=== PATIENT | male | born 1955 | race Caucasian/White ===

== ENCOUNTER 2023-06-22 17:56 | Inpatient (IN) | payer OTHER ==
[~2023-06-22] VITALS: Ht 185.4 cm; Wt 59.1 kg
[2023-06-22] VITALS (7 sets, daily range): BP systolic 116; BP diastolic 70; PULSE 152–160; RESP 16–25; TEMP 98; O2SAT 85–98
[2023-06-22] MEDS ORDERED: NACL 0.9% 1,000 ML IV SCH (18:15)
[2023-06-22] MEDS ORDERED: DILTIAZEM 25 MG/5 ML VIAL IVP ONE ×3 (18:25→22:12)
[2023-06-22 19:13] LABS: HEMATOCRIT 41.5 % (36-52); HEMOGLOBIN 14.1 g/dL (12.0-18.0); MEAN CORPUSCULAR HEMOGLOBIN 34 pg (27-31); MEAN CORPUSCULAR HGB CONC 34 g/dL (33-37); MEAN CORPUSCULAR VOLUME 100.6 fL (80-94); PLATELET COUNT (AUTO) 380 K/uL (140-450); RED BLOOD CELL COUNT(AUTO) 4.13 MIL/uL (4.20-6.10); RED CELL DISTRIBUTION WIDTH 13.4 % (11.6-13.7); WHITE BLOOD COUNT (AUTO) 15.3 K/uL (4.8-10.8)
[2023-06-22 19:20] LABS: INR 1.41 (0.8-1.2); PARTIAL THROMBOPLASTIN TIME 28.3 secs (22-35.6); PROTHROMBIN TIME 14.6 secs (10.8-13.4)
[2023-06-22 19:22] LABS: ANION GAP 20.6 (8-16); CALCIUM 8.3 mg/dL (8.5-10.1); CARBON DIOXIDE 19.5 mmol/L (21-32); CREATININE 1.5 mg/dL (0.6-1.3); POTASSIUM 4.1 mmol/L (3.5-5.1)
[2023-06-22 19:34] LABS: LACTIC ACID 7.5 mmol/L (0.4-2.0)
[2023-06-22 19:35] LABS: ALANINE AMINOTRANSFERASE 65 U/L (12-78); ALBUMIN 1.4 g/dL (3.4-5.0); ALKALINE PHOSPHATASE 156 U/L (50-136); ASPARTATE AMINOTRANSFERASE 197 U/L (15-37); BILIRUBIN,DIRECT 0.8 mg/dL (0.0-0.3); CREATINE KINASE, TOTAL 100 U/L (39-308); FREE T4 (FREE THYROXINE) 0.82 ng/dL (0.76-1.46); LIPASE 10 U/L (16-77); MAGNESIUM 2.1 mg/dL (1.8-2.4); THYROID STIMULATING HORMONE 0.84 uIU/mL (0.34-3.74); TOTAL BILIRUBIN 1.1 mg/dL (0.0-1.0); TOTAL PROTEIN, SERUM 7.4 g/dL (6.4-8.2)
[2023-06-22] MEDS ORDERED: PIPERACILLIN/TAZOBACTAM 3.375 GM in DEXTROSE 5% 50 ML IV ONE (19:45)
[2023-06-22 19:47] LABS: LYMPHOCYTES % (MANUAL) 2 % (20-46)
[2023-06-22 19:48] LABS: PLATELET ESTIMATE ADEQUATE
[2023-06-22 20:13] LABS: ALCOHOL, BLOOD < 3 mg/dL (<10); SALICYLATE 5.8 mg/dL (2.8-20.0)
[2023-06-22] MEDS ORDERED: PIPERACILLIN/TAZOBACTAM 3.375 GM VIAL IV ONE (20:48)
[2023-06-22 21:52] LABS: FLU A ANTIGEN negative (NEGATIVE); FLU B ANTIGEN NEGATIVE (NEGATIVE)
[2023-06-22] MEDS ORDERED: NICARDIPINE HYDROCHLORIDE 2.5 MG/ML VIAL IV ONE (22:08)
[2023-06-22] MEDS ORDERED: VANCOMYCIN PER PHARMACY MC PRN (23:20)
[2023-06-22] MEDS ORDERED: ACETAMINOPHEN 325 MG TAB PO PRN (23:20)
[2023-06-22] MEDS ORDERED: MORPHINE SULFATE 4 MG/ML SYR IVP PRN (23:20)
[2023-06-23] VITALS (22 sets, daily range): BP systolic 83–160; BP diastolic 45–101; PULSE 45–150; RESP 18–28; TEMP 97.2–99; O2SAT 90–98
[2023-06-23 01:12] LABS: LACTIC ACID 4.8 mmol/L (0.4-2.0)
[2023-06-23 01:28] LABS: APPEARANCE,URINE CLEAR (CLEAR); BILIRUBIN,URINE 1+ (NEGATIVE); BLOOD, URINE 2+ (NEGATIVE); COLOR,URINE YELLOW (YELLOW); LEUKOCYTE ESTERASE ,URINE NEGATIVE (NEGATIVE); NITRITE, URINE NEGATIVE (NEGATIVE); PROTEIN,URINE 2+ (NEGATIVE); UGLUCOSE NEGATIVE (NEGATIVE)
[2023-06-23 01:35] LABS: ICTOTEST POSITIVE (NEGATIVE)
[2023-06-23 01:36] LABS: BACTERIA,URINE >30 (MANY) /HPF (None Seen); MUCUS,URINE 1+ /LPF (None Seen); RBC,URINE 0-5 /HPF (0-5); SQUAMOUS EPITHELIAL CELL,UR 0-3 (FEW) /LPF (0-3 (FEW)); WBC,URINE 0-5 /HPF (0-5)
[2023-06-23 01:41] LABS: AMPHETAMINE, URINE POSITIVE ng/ml (NEG <=1000); BARBITURATE, URINE NEGATIVE ng/ml (NEG <=200); BENZODIAZEPINE, URINE NEGATIVE ng/mL (NEG <=200); CANNABINOID, URINE POSITIVE ng/mL (NEG <=50); COCAINE, URINE NEGATIVE ng/mL (NEG <=300); OPIATE, URINE NEGATIVE ng/mL (NEG <=2000); PHENCYCLIDINE SCREEN,URINE NEGATIVE ng/mL (NEG <=25)
[2023-06-23] MEDS ORDERED: VANCOMYCIN 1GM/DEXT 5% PREMIX 200 ML IV ONE (03:00)
[2023-06-23] MEDS ORDERED: VANCOMYCIN 1,000 MG VIAL ONE (03:00)
[2023-06-23 03:50] LABS: EOSINOPHILS # (AUTO) 0.3 K/uL (0-0.4); EOSINOPHILS % (AUTO) 1.8 % (0.0-4.0); HEMATOCRIT 36.7 % (36-52); HEMOGLOBIN 12.5 g/dL (12.0-18.0); LYMPHOCYTES # (AUTO) 0.5 K/uL (2.0-11.5); LYMPHOCYTES % (AUTO) 3.3 % (20.5-51.1); MEAN CORPUSCULAR HEMOGLOBIN 34 pg (27-31); MEAN CORPUSCULAR HGB CONC 34 g/dL (33-37); MEAN CORPUSCULAR VOLUME 99.4 fL (80-94); MONOCYTES % (AUTO) 0.2 % (1.7-9.3); NEUTROPHILS # (AUTO) 15.1 K/uL (1.8-7.7); NEUTROPHILS % (AUTO) 94.7 % (42.2-75.2); PLATELET COUNT (AUTO) 323 K/uL (140-450); RED CELL DISTRIBUTION WIDTH 13.3 % (11.6-13.7)
[2023-06-23 04:33] LABS: ALBUMIN 1.2 g/dL (3.4-5.0); ANION GAP 18.7 (8-16); CALCIUM 8.1 mg/dL (8.5-10.1); CARBON DIOXIDE 19.4 mmol/L (21-32); CREATININE 1.3 mg/dL (0.6-1.3); POTASSIUM 4.1 mmol/L (3.5-5.1); TOTAL BILIRUBIN 1.4 mg/dL (0.0-1.0); TOTAL PROTEIN, SERUM 6.6 g/dL (6.4-8.2)
[2023-06-23] MEDS: PIPERACILLIN/TAZOBACTAM 2.25 GM in DEXTROSE 5% 50 ML IV SCH ×2 (05:40→13:00)
[2023-06-23] MEDS ORDERED: PIPERACILLIN/TAZOBACTAM 2.25 GM VIAL IV ONE (06:06)
[2023-06-23] MEDS ORDERED: AMIODARONE 450 MG/9 ML VIAL IV ONE (08:06)
[2023-06-23 09:01] LABS: LACTIC ACID 3.9 mmol/L (0.4-2.0)
[2023-06-23] MEDS: AMIODARONE 450 MG in DEXTROSE 5% 250 ML IV SCH ×2 (09:05→12:47)
[2023-06-23 10:22] LABS: ANION GAP 15.7 (8-16); CALCIUM 8.1 mg/dL (8.5-10.1); CARBON DIOXIDE 22.4 mmol/L (21-32); CREATININE 1.1 mg/dL (0.6-1.3); POTASSIUM 4.1 mmol/L (3.5-5.1)
[2023-06-23 10:25] LABS: MAGNESIUM 2.3 mg/dL (1.8-2.4); PHOSPHORUS 3.4 mg/dL (2.5-4.9)
[2023-06-23 10:46] LABS: BASOPHILS % (AUTO) 0.2 % (0.0-2.0); EOSINOPHILS % (AUTO) 0.2 % (0.0-4.0); HEMATOCRIT 39.9 % (36-52); HEMOGLOBIN 13.2 g/dL (12.0-18.0); LYMPHOCYTES # (AUTO) 0.7 K/uL (2.0-11.5); LYMPHOCYTES % (AUTO) 4.1 % (20.5-51.1); MEAN CORPUSCULAR HEMOGLOBIN 33 pg (27-31); MEAN CORPUSCULAR HGB CONC 33 g/dL (33-37); MEAN CORPUSCULAR VOLUME 100.5 fL (80-94); MONOCYTES # (AUTO) 0.2 K/uL (0.8-1.0); MONOCYTES % (AUTO) 1.4 % (1.7-9.3); NEUTROPHILS # (AUTO) 15.3 K/uL (1.8-7.7); NEUTROPHILS % (AUTO) 94.1 % (42.2-75.2); PLATELET COUNT (AUTO) 260 K/uL (140-450); RED BLOOD CELL COUNT(AUTO) 3.97 MIL/uL (4.20-6.10); RED CELL DISTRIBUTION WIDTH 13.6 % (11.6-13.7); WHITE BLOOD COUNT (AUTO) 16.3 K/uL (4.8-10.8)
[2023-06-23] MEDS ORDERED: NACL 0.9% 1,000 ML IV SCH (12:05)
[2023-06-23] MEDS ORDERED: ALBUTEROL SULFATE/IPRATROPIU 3 ML SOL IH PRN (14:15)
[2023-06-23] MEDS ORDERED: VANCOMYCIN 1,000 MG in DEXTROSE 5% 250 ML IV SCH (15:00)
[2023-06-23] MEDS: PANTOPRAZOLE 40 MG INJ VIAL IVP SCH (21:07)
[2023-06-23] MEDS: methylPREDNISolone SS 40 MG/ML VIAL IVP SCH (21:08)
[2023-06-23] MEDS ORDERED: cefTRIAXone 1,000 MG VIAL ONE (21:50)
[2023-06-23] MEDS ORDERED: AZITHROMYCIN 500 MG INJ VIAL IV ONE (21:51)
[2023-06-23] MEDS: AZITHROMYCIN 500 MG in DEXTROSE 5% 250 ML IV SCH (22:24)
[2023-06-23] MEDS ORDERED: MELATONIN 3 MG TAB ONE (23:52)
[2023-06-24] VITALS (25 sets, daily range): BP systolic 91–138; BP diastolic 60–92; PULSE 66–132; RESP 15–28; TEMP 97.7–99.2; O2SAT 86–98
[2023-06-24 06:23] LABS: BASOPHILS % (AUTO) 0.1 % (0.0-2.0); EOSINOPHILS % (AUTO) 0.1 % (0.0-4.0); HEMATOCRIT 38.3 % (36-52); HEMOGLOBIN 13.2 g/dL (12.0-18.0); LYMPHOCYTES # (AUTO) 0.7 K/uL (2.0-11.5); MEAN CORPUSCULAR HEMOGLOBIN 34 pg (27-31); MEAN CORPUSCULAR HGB CONC 35 g/dL (33-37); MEAN CORPUSCULAR VOLUME 98.8 fL (80-94); MONOCYTES # (AUTO) 0.4 K/uL (0.8-1.0); MONOCYTES % (AUTO) 2.1 % (1.7-9.3); NEUTROPHILS # (AUTO) 16.1 K/uL (1.8-7.7); NEUTROPHILS % (AUTO) 93.7 % (42.2-75.2); PLATELET COUNT (AUTO) 147 K/uL (140-450); RED BLOOD CELL COUNT(AUTO) 3.87 MIL/uL (4.20-6.10); RED CELL DISTRIBUTION WIDTH 13.9 % (11.6-13.7); WHITE BLOOD COUNT (AUTO) 17.1 K/uL (4.8-10.8)
[2023-06-24 06:42] LABS: ANION GAP 17.9 (8-16); CALCIUM 7.9 mg/dL (8.5-10.1); CARBON DIOXIDE 19.7 mmol/L (21-32); CREATININE 1.1 mg/dL (0.6-1.3); POTASSIUM 4.6 mmol/L (3.5-5.1)
[2023-06-24] MEDS: PANTOPRAZOLE 40 MG INJ VIAL IVP SCH ×2 (09:27→21:36)
[2023-06-24] MEDS: methylPREDNISolone SS 40 MG/ML VIAL IVP SCH ×2 (09:28→21:36)
[2023-06-24] MEDS: ENOXAPARIN 40 MG/0.4 ML SYR SUBQ SCH (09:28)
[2023-06-24 10:22] LABS: BLOOD GAS BASE EXCESS -5.4 mmol/L (-2.0-2.0); BLOOD GAS HCO3 15.4 mmol/L (22-26); BLOOD GAS O2 SAT% 94.1 % (92.0-98.5); BLOOD GAS PO2 67.8 mmHg (75-100)
[2023-06-24 10:24] LABS: BLOOD GAS PCO2 20.6 mmHg (35-45)
[2023-06-24] MEDS ORDERED: FUROSEMIDE 20 MG/2 ML VIAL IVP SCH (13:35)
[2023-06-24] MEDS: AZITHROMYCIN 500 MG in DEXTROSE 5% 250 ML IV SCH (19:36)
[2023-06-24] MEDS ORDERED: VANCOMYCIN PER PHARMACY MC PRN (20:20)
[2023-06-24] MEDS: AMIODARONE 450 MG in DEXTROSE 5% 250 ML IV SCH (21:58)
[2023-06-25] VITALS (27 sets, daily range): BP systolic 109–134; BP diastolic 70–86; PULSE 66–82; RESP 15–24; TEMP 97.3–99; O2SAT 90–98
[2023-06-25] MEDS: ALBUTEROL SULFATE/IPRATROPIU 3 ML SOL IH SCH ×4 (00:05→22:17)
[2023-06-25 04:50] LABS: BASOPHILS % (AUTO) 0.2 % (0.0-2.0); EOSINOPHILS % (AUTO) 0.1 % (0.0-4.0); HEMATOCRIT 36.2 % (36-52); HEMOGLOBIN 12.5 g/dL (12.0-18.0); LYMPHOCYTES # (AUTO) 0.7 K/uL (2.0-11.5); LYMPHOCYTES % (AUTO) 3.5 % (20.5-51.1); MEAN CORPUSCULAR HEMOGLOBIN 34 pg (27-31); MEAN CORPUSCULAR HGB CONC 35 g/dL (33-37); MEAN CORPUSCULAR VOLUME 97.6 fL (80-94); MONOCYTES # (AUTO) 0.5 K/uL (0.8-1.0); MONOCYTES % (AUTO) 2.4 % (1.7-9.3); NEUTROPHILS # (AUTO) 19.9 K/uL (1.8-7.7); NEUTROPHILS % (AUTO) 93.8 % (42.2-75.2); PLATELET COUNT (AUTO) 49 K/uL (140-450); WHITE BLOOD COUNT (AUTO) 21.2 K/uL (4.8-10.8)
[2023-06-25 07:54] LABS: ANION GAP 21.1 (8-16); CALCIUM 7.5 mg/dL (8.5-10.1); CARBON DIOXIDE 16.3 mmol/L (21-32); CREATININE 1.6 mg/dL (0.6-1.3); POTASSIUM 4.4 mmol/L (3.5-5.1)
[2023-06-25] MEDS: methylPREDNISolone SS 40 MG/ML VIAL IVP SCH ×2 (08:36→21:07)
[2023-06-25] MEDS: PANTOPRAZOLE 40 MG INJ VIAL IVP SCH ×2 (08:36→21:06)
[2023-06-25] MEDS: ENOXAPARIN 40 MG/0.4 ML SYR SUBQ SCH (08:37)
[2023-06-25] MEDS ORDERED: VANCOMYCIN 1,000 MG in DEXTROSE 5% 250 ML IV SCH (09:00)
[2023-06-25] MEDS: SODIUM BICARBONATE 8.4% 100 MEQ in NACL 0.45% 1,000 ML IV SCH (09:10)
[2023-06-25] MEDS: AZITHROMYCIN 500 MG in DEXTROSE 5% 250 ML IV SCH (14:17)
[2023-06-25] MEDS: AMIODARONE 200 MG TAB PO SCH ×2 (15:31→21:09)
[2023-06-25] MEDS ORDERED: cefTRIAXone 1,000 MG VIAL ONE (20:23)
[2023-06-26] VITALS (12 sets, daily range): BP systolic 101–122; BP diastolic 62–79; PULSE 67–85; RESP 17–20; TEMP 96.4–97.4; O2SAT 92–98
[2023-06-26] MEDS: SODIUM BICARBONATE 8.4% 100 MEQ in NACL 0.45% 1,000 ML IV SCH (03:30)
[2023-06-26 06:48] LABS: EOSINOPHILS % (AUTO) 0.1 % (0.0-4.0); HEMATOCRIT 31.5 % (36-52); LYMPHOCYTES # (AUTO) 0.7 K/uL (2.0-11.5); LYMPHOCYTES % (AUTO) 3.3 % (20.5-51.1); MEAN CORPUSCULAR HEMOGLOBIN 34 pg (27-31); MEAN CORPUSCULAR HGB CONC 35 g/dL (33-37); MEAN CORPUSCULAR VOLUME 96.9 fL (80-94); MONOCYTES # (AUTO) 0.4 K/uL (0.8-1.0); MONOCYTES % (AUTO) 2.1 % (1.7-9.3); NEUTROPHILS % (AUTO) 94.5 % (42.2-75.2); PLATELET COUNT (AUTO) 40 K/uL (140-450); RED BLOOD CELL COUNT(AUTO) 3.25 MIL/uL (4.20-6.10); WHITE BLOOD COUNT (AUTO) 20.1 K/uL (4.8-10.8)
[2023-06-26] MEDS: ALBUTEROL SULFATE/IPRATROPIU 3 ML SOL IH SCH ×3 (07:42→23:00)
[2023-06-26 08:09] LABS: ANION GAP 9.7 (8-16); CALCIUM 7.7 mg/dL (8.5-10.1); CARBON DIOXIDE 25.3 mmol/L (21-32); CREATININE 1.1 mg/dL (0.6-1.3)
[2023-06-26] MEDS: ENOXAPARIN 40 MG/0.4 ML SYR SUBQ SCH (09:00)
[2023-06-26] MEDS: PANTOPRAZOLE 40 MG INJ VIAL IVP SCH ×2 (09:20→20:23)
[2023-06-26] MEDS: AMIODARONE 200 MG TAB PO SCH ×2 (09:21→20:24)
[2023-06-26] MEDS: methylPREDNISolone SS 40 MG/ML VIAL IVP SCH ×2 (09:21→20:23)
[2023-06-26] MEDS: AZITHROMYCIN 500 MG in DEXTROSE 5% 250 ML IV SCH (16:54)
[2023-06-26] MEDS: NACL 0.9% 1,000 ML IV SCH (17:13)
[2023-06-26] MEDS: MELATONIN 3 MG TAB PO PRN (20:24)
[2023-06-26] MEDS: HYDROcodone/APAP 5/325 MG 1 TAB TAB PO PRN (20:24)
[2023-06-27] VITALS (10 sets, daily range): BP systolic 110–128; BP diastolic 69–73; PULSE 68–76; RESP 16–20; TEMP 97–98.2; O2SAT 92–99
[2023-06-27 07:06] LABS: BASOPHILS % (AUTO) 0.2 % (0.0-2.0); HEMATOCRIT 30.4 % (36-52); HEMOGLOBIN 10.6 g/dL (12.0-18.0); LYMPHOCYTES # (AUTO) 0.8 K/uL (2.0-11.5); LYMPHOCYTES % (AUTO) 4.2 % (20.5-51.1); MEAN CORPUSCULAR HEMOGLOBIN 34 pg (27-31); MEAN CORPUSCULAR HGB CONC 35 g/dL (33-37); MEAN CORPUSCULAR VOLUME 97.7 fL (80-94); MONOCYTES # (AUTO) 0.4 K/uL (0.8-1.0); NEUTROPHILS # (AUTO) 17.3 K/uL (1.8-7.7); NEUTROPHILS % (AUTO) 93.6 % (42.2-75.2); PLATELET COUNT (AUTO) 42 K/uL (140-450); RED BLOOD CELL COUNT(AUTO) 3.11 MIL/uL (4.20-6.10); RED CELL DISTRIBUTION WIDTH 13.7 % (11.6-13.7); WHITE BLOOD COUNT (AUTO) 18.5 K/uL (4.8-10.8)
[2023-06-27] MEDS: ALBUTEROL SULFATE/IPRATROPIU 3 ML SOL IH SCH ×3 (07:07→23:00)
[2023-06-27 07:24] LABS: CALCIUM 7.7 mg/dL (8.5-10.1); CARBON DIOXIDE 27.4 mmol/L (21-32); CREATININE 0.9 mg/dL (0.6-1.3); POTASSIUM 4.4 mmol/L (3.5-5.1)
[2023-06-27] MEDS: ENOXAPARIN 40 MG/0.4 ML SYR SUBQ SCH (08:57)
[2023-06-27] MEDS: NACL 0.9% 1,000 ML IV SCH (09:11)
[2023-06-27] MEDS: HYDROcodone/APAP 5/325 MG 1 TAB TAB PO PRN ×2 (09:12→15:17)
[2023-06-27] MEDS: AMIODARONE 200 MG TAB PO SCH ×2 (09:12→21:02)
[2023-06-27] MEDS: PANTOPRAZOLE 40 MG INJ VIAL IVP SCH ×2 (10:15→20:57)
[2023-06-27] MEDS: methylPREDNISolone SS 40 MG/ML VIAL IVP SCH ×2 (10:16→20:57)
[2023-06-27] MEDS: AZITHROMYCIN 500 MG in DEXTROSE 5% 250 ML IV SCH (14:28)
[2023-06-27] MEDS: MELATONIN 3 MG TAB PO PRN (21:24)
[2023-06-27 21:30] LABS: POTASSIUM,URINE RANDOM 10 mmol/L (12-75); URINE SODIUM, RANDOM 16 mmol/l (40-220)
[2023-06-28] VITALS (10 sets, daily range): BP systolic 119–134; BP diastolic 70–79; PULSE 66–77; RESP 17–20; TEMP 97.5–97.8; O2SAT 91–98
[2023-06-28] MEDS: NACL 0.9% 1,000 ML IV SCH ×3 (00:20→18:31)
[2023-06-28 07:01] LABS: BASOPHILS % (AUTO) 0.2 % (0.0-2.0); EOSINOPHILS % (AUTO) 0.1 % (0.0-4.0); HEMATOCRIT 28.4 % (36-52); HEMOGLOBIN 9.7 g/dL (12.0-18.0); LYMPHOCYTES # (AUTO) 0.5 K/uL (2.0-11.5); LYMPHOCYTES % (AUTO) 2.6 % (20.5-51.1); MEAN CORPUSCULAR HEMOGLOBIN 34 pg (27-31); MEAN CORPUSCULAR HGB CONC 34 g/dL (33-37); MEAN CORPUSCULAR VOLUME 98.5 fL (80-94); MONOCYTES # (AUTO) 0.3 K/uL (0.8-1.0); MONOCYTES % (AUTO) 1.7 % (1.7-9.3); NEUTROPHILS # (AUTO) 18.3 K/uL (1.8-7.7); NEUTROPHILS % (AUTO) 95.4 % (42.2-75.2); PLATELET COUNT (AUTO) 61 K/uL (140-450); RED BLOOD CELL COUNT(AUTO) 2.89 MIL/uL (4.20-6.10); RED CELL DISTRIBUTION WIDTH 14.1 % (11.6-13.7); WHITE BLOOD COUNT (AUTO) 19.2 K/uL (4.8-10.8)
[2023-06-28 07:18] LABS: CALCIUM 7.5 mg/dL (8.5-10.1); CARBON DIOXIDE 26.9 mmol/L (21-32); CREATININE 0.7 mg/dL (0.6-1.3); POTASSIUM 4.9 mmol/L (3.5-5.1)
[2023-06-28] MEDS: ALBUTEROL SULFATE/IPRATROPIU 3 ML SOL IH SCH ×3 (07:21→23:45)
[2023-06-28] MEDS: AMIODARONE 200 MG TAB PO SCH ×2 (08:35→20:48)
[2023-06-28] MEDS: HYDROcodone/APAP 5/325 MG 1 TAB TAB PO PRN ×3 (08:36→18:11)
[2023-06-28] MEDS: ENOXAPARIN 40 MG/0.4 ML SYR SUBQ SCH (08:39)
[2023-06-28] MEDS: PANTOPRAZOLE 40 MG INJ VIAL IVP SCH ×2 (09:08→20:47)
[2023-06-28] MEDS: methylPREDNISolone SS 40 MG/ML VIAL IVP SCH ×2 (09:08→20:46)
[2023-06-28] MEDS: AZITHROMYCIN 500 MG in DEXTROSE 5% 250 ML IV SCH (15:10)
[2023-06-28] MEDS: MELATONIN 3 MG TAB PO PRN (20:53)
[2023-06-29] VITALS (9 sets, daily range): BP systolic 126–149; BP diastolic 70–83; PULSE 67–84; RESP 16–24; TEMP 97.7–98.1; O2SAT 85–97
[2023-06-29 06:33] LABS: BASOPHILS # (AUTO) 0.1 K/uL (0.00-0.22); BASOPHILS % (AUTO) 0.3 % (0.0-2.0); EOSINOPHILS % (AUTO) 0.1 % (0.0-4.0); HEMATOCRIT 28.2 % (36-52); HEMOGLOBIN 9.6 g/dL (12.0-18.0); LYMPHOCYTES # (AUTO) 0.5 K/uL (2.0-11.5); LYMPHOCYTES % (AUTO) 2.8 % (20.5-51.1); MEAN CORPUSCULAR HEMOGLOBIN 34 pg (27-31); MEAN CORPUSCULAR HGB CONC 34 g/dL (33-37); MEAN CORPUSCULAR VOLUME 98.6 fL (80-94); MONOCYTES # (AUTO) 0.5 K/uL (0.8-1.0); MONOCYTES % (AUTO) 2.6 % (1.7-9.3); NEUTROPHILS # (AUTO) 17.2 K/uL (1.8-7.7); NEUTROPHILS % (AUTO) 94.2 % (42.2-75.2); PLATELET COUNT (AUTO) 103 K/uL (140-450); RED BLOOD CELL COUNT(AUTO) 2.86 MIL/uL (4.20-6.10); RED CELL DISTRIBUTION WIDTH 14.4 % (11.6-13.7); WHITE BLOOD COUNT (AUTO) 18.3 K/uL (4.8-10.8)
[2023-06-29 07:18] LABS: ANION GAP 10.2 (8-16); CARBON DIOXIDE 26.2 mmol/L (21-32); CREATININE 0.7 mg/dL (0.6-1.3)
[2023-06-29 07:21] LABS: POTASSIUM 5.4 mmol/L (3.5-5.1)
[2023-06-29] MEDS: ALBUTEROL SULFATE/IPRATROPIU 3 ML SOL IH SCH ×3 (07:40→18:46)
[2023-06-29] MEDS ORDERED: SODIUM ZIRCONIUM CYCLOSILICATE 10 GM POWD.PACK PO SCH (08:34)
[2023-06-29] MEDS: ENOXAPARIN 40 MG/0.4 ML SYR SUBQ SCH (09:00)
[2023-06-29] MEDS: methylPREDNISolone SS 40 MG/ML VIAL IVP SCH (09:38)
[2023-06-29] MEDS: PANTOPRAZOLE 40 MG INJ VIAL IVP SCH (09:38)
[2023-06-29] MEDS: AMIODARONE 200 MG TAB PO SCH (09:39)
[2023-06-29] MEDS: AZITHROMYCIN 500 MG in DEXTROSE 5% 250 ML IV SCH (16:12)
[2023-06-29] MEDS ORDERED: PRED20TA5 PO (17:39)
[2023-06-29] MEDS ORDERED: CEFD300C3 PO (17:39)
[2023-06-29] MEDS ORDERED: AMIO200T10 PO (17:39)
[2023-06-29] MEDS ORDERED: AMIODARONE 200 MG TAB PO SCH (21:00)
== END 2023-06-29 20:45 | disposition home health service (06) | DRG 871 ==
LOC: EDSEX 17:56 → MED 17:56 → MMU 23:29 → MIC 06-23 06:10 → MTU 06-25 18:40
PROVIDERS: ADMIT Hospitalist; ATTEND Hospitalist
PROC: 5A09457 Assistance with Respiratory Ventilation, 24-96 Consecutive Hours, Continuous Positive Airway Pressure (ICD-10-PCS; 2023-06-22)
PROC: 5A0935A Assistance with Respiratory Ventilation, Less than 24 Consecutive Hours, High Flow/Velocity Cannula (ICD-10-PCS; 2023-06-22)
PROC: 05HY33Z Insertion of Infusion Device into Upper Vein, Percutaneous Approach (ICD-10-PCS; 2023-06-23)
PROC: 5A09357 Assistance with Respiratory Ventilation, Less than 24 Consecutive Hours, Continuous Positive Airway Pressure (ICD-10-PCS; 2023-06-24)
PROC: 5A0945A Assistance with Respiratory Ventilation, 24-96 Consecutive Hours, High Flow/Velocity Cannula (ICD-10-PCS; 2023-06-24)
PROC: 5A09357 Assistance with Respiratory Ventilation, Less than 24 Consecutive Hours, Continuous Positive Airway Pressure (ICD-10-PCS; principal; 2023-06-26)
DX: A41.9 Sepsis, unspecified organism (principal); J18.9 Pneumonia, unspecified organism; J96.01 Acute respiratory failure with hypoxia; E87.20 Acidosis, unspecified; N17.9 Acute kidney failure, unspecified; E87.1 Hypo-osmolality and hyponatremia; E46 Unspecified protein-calorie malnutrition; Z68.1 Body mass index [BMI] 19.9 or less, adult; Z20.822 Contact with and (suspected) exposure to COVID-19; J43.9 Emphysema, unspecified; I48.91 Unspecified atrial fibrillation; D69.6 Thrombocytopenia, unspecified; I95.9 Hypotension, unspecified; E86.1 Hypovolemia; R65.20 Severe sepsis without septic shock; N18.9 Chronic kidney disease, unspecified; F15.10 Other stimulant abuse, uncomplicated; Z87.891 Personal history of nicotine dependence; Z79.899 Other long term (current) drug therapy; K52.9 Noninfective gastroenteritis and colitis, unspecified
CPT/HCPCS: 36415; 71045; 71275; 80048; 80053; 80076; 80202; 80305; 81001; 82550; 82803; 83605; 83690; 83735; 83880; 83935; 84100; 84133; 84300; 84439; 84443; 84484; 85025; 85379; 85610; 85730; 87040; 87070; 87081; 87086; 87177; 87186; 87205; 87449; 92526; 93005; 94640; 94660; 96365; 96375; 96376; 97116; 97163-GP; 99291; 99292; C9113; G0480; G0482; J0282; J0456; J0696; J1650; J1940; J2543; J2920; J3370; J3490; J7060; Q9967